=== PATIENT | female | born 1940 | race Caucasian/White ===

== ENCOUNTER 2019-02-16 21:37 | Inpatient (IN) | payer MEDICARE, OTHER ==
[~2019-02-16] VITALS: Ht 154.9 cm; Wt 76.0 kg
[~2019-02-16 21:37] MED LIST: ALBUTEROL 0.5% (NEB) 2.5 MG/0.5 ML AMP INH STA; ALEN70TA5 PO; AMIO100T4 PO; AMLO1TAB14 PO; APIX2.5T PO; ASPI325T32 PO; ATOR20TA38 PO; BEN50 PO; CLON1PAT2 TD; DEXL60CA2 PO; DIGO125T PO; DIGO250T72 PO; FUROSEMIDE 40 MG INJ IV STA; GLYB1TAB3 PO; ICNREG SC; INSU100I27 SQ; INSU100V18 SC; IPRATROPIUM (NEB) 0.5 MG/2.5 ML AMP INH STA; ISOS60TA36 PO; LISI-471 PO; LISI10TA2 PO; MEMA21CA PO; METO100T PO; NITR12SP2 SL; OXYB10TA6 PO; POTA8TAB46 PO; RSV10T PO
[2019-02-16 21:38] VITALS: Ht 154.9 cm; Wt 76.0 kg
[2019-02-16] MEDS ORDERED: NITROGLYCERIN 50 MG/D5W (PMX) 250 ML IV STA (21:41)
[2019-02-16] MEDS ORDERED: AMIODARONE 150MG/D5W BOLUS IV* STA (21:43)
[2019-02-16] MEDS ORDERED: AMIODARONE 900 MG in DEXTROSE 5% 482 ML IV SCH (22:00)
[2019-02-16] MEDS ORDERED: AZITHROMYCIN 500MG/NS (PMX) 250 ML IV STA (22:09)
[2019-02-16] MEDS ORDERED: CEFTRIAXONE 1 GM/50 ML (PMX) 50 ML IVPB STA (22:09)
[2019-02-16] MEDS ORDERED: ACETAMINOPHEN 325 MG TAB PO PRN (22:30)
[2019-02-16] MEDS ORDERED: ONDANSETRON 4 MG INJ IV PRN (22:30)
[2019-02-16] MEDS ORDERED: INSULIN REGULAR, HUMAN 100 UNIT/1 ML 3ML VIAL IV ONE (22:30)
[2019-02-16] MEDS ORDERED: SOD CHLORIDE 0.45% 1,000 ML IV SCH (23:50)
[2019-02-17] VITALS (42 sets, daily range): BP systolic 92–155; BP diastolic 52–94; PULSE 70–85; RESP 18–34
[2019-02-17] MEDS ORDERED: NITROGLYCERIN AEROSOL (4.9 GM) SL SCH
[2019-02-17] MEDS ORDERED: PIPER-TAZO 3.375 GM IV (PMX) 100 ML IVPB SCH
[2019-02-17] MEDS ORDERED: VANCOMYCIN IV PER PHARMACY XX SCH (00:30)
[2019-02-17] MEDS ORDERED: PIPER-TAZO 3.375 GM IV (PMX) 100 ML IVPB ONE (01:00)
[2019-02-17] MEDS ORDERED: NITROGLYCERIN (SL) 0.4 MG TAB SL PRN (01:00)
[2019-02-17] MEDS ORDERED: VANCOMYCIN 1.5 GM/NS 250 ML 250 ML IVPB ONE (05:00)
[2019-02-17] MEDS: PIPER-TAZO 2.25 GM/NS 50 ML IVPB SCH ×3 (07:47→21:21)
[2019-02-17] MEDS: ALBUTEROL/IPRATROPIUM (NEB) 3 ML AMP HHN SCH ×3 (08:12→20:11)
[2019-02-17] MEDS: POTASSIUM CHLORIDE 100 ML IVPB SCH ×2 (08:20→10:04)
[2019-02-17] MEDS: FUROSEMIDE 40 MG INJ IV SCH ×2 (08:21→17:40)
[2019-02-17] MEDS ORDERED: MAGNESIUM SULFATE 4 GM/100 ML 100 ML IVPB ONE (08:30)
[2019-02-17] MEDS: DIPHENHYDRAMINE 50 MG CAP PO SCH ×5 (09:00→21:26)
[2019-02-17] MEDS ORDERED: POTASSIUM CHLORIDE (SR) 8 MEQ CAP PO SCH (09:00)
[2019-02-17] MEDS ORDERED: MAGNESIUM SULFATE 2 GM/50 ML 50 ML IVPB SCH (09:00)
[2019-02-17] MEDS ORDERED: DIGOXIN 0.25 MG TAB PO SCH ×2 (09:00)
[2019-02-17] MEDS ORDERED: ASPIRIN (EC) 325 MG TAB PO SCH (09:00)
[2019-02-17] MEDS ORDERED: VANCOMYCIN 1 GM (PMX) 250 ML IVPB SCH (09:00)
[2019-02-17] MEDS ORDERED: LISINOPRIL 20 MG TAB PO SCH (09:00)
[2019-02-17] MEDS ORDERED: LISINOPRIL 10 MG TAB PO SCH (09:00)
[2019-02-17] MEDS ORDERED: AMIODARONE 900 MG in DEXTROSE 5% 482 ML IV SCH (09:00)
[2019-02-17] MEDS: METOPROLOL 100 MG TAB PO SCH (10:04)
[2019-02-17] MEDS: ASPIRIN (EC) 325 MG TAB PO SCH (10:04)
[2019-02-17] MEDS: SOD FERRIC GLUC COMPLX 125 MG in SOD CHLORIDE 0.9% 100 ML IVPB SCH (13:45)
[2019-02-17] MEDS: AMIODARONE 200 ML IV SCH ×2 (13:54→19:24)
[2019-02-17] MEDS ORDERED: INSULIN LISPRO 100 UNIT/ML VIAL SC SCH (21:00)
[2019-02-17] MEDS ORDERED: INSULIN ASPART [NOVOLOG] 3 ML PEN SC SCH (21:00)
[2019-02-17] MEDS: ATORVASTATIN 20 MG TAB PO SCH (21:26)
[2019-02-18] VITALS (54 sets, daily range): BP systolic 98–150; BP diastolic 44–109; PULSE 64–143; RESP 14–37
[2019-02-18] MEDS: AMIODARONE 200 ML IV SCH ×5 (04:51→21:22)
[2019-02-18] MEDS: VANCOMYCIN 1 GM 250 ML IVPB SCH (04:53)
[2019-02-18] MEDS ORDERED: DILTIAZEM 25 MG INJ IV ONE ×4 (06:00)
[2019-02-18] MEDS: PIPER-TAZO 2.25 GM/NS 50 ML IVPB SCH ×3 (06:02→22:42)
[2019-02-18] MEDS: FUROSEMIDE 40 MG INJ IV SCH ×3 (07:00→17:34)
[2019-02-18] MEDS ORDERED: GLUCOSE GEL 15 GRAM TUBE BUCCAL PRN (08:30)
[2019-02-18] MEDS ORDERED: GLUCAGON 1 MG INJ IM PRN (08:30)
[2019-02-18] MEDS ORDERED: DEXTROSE 50% 50 ML SYRINGE IV PRN ×2 (08:30)
[2019-02-18] MEDS ORDERED: GLUCOSE GEL 15 GRAM TUBE PO PRN ×2 (08:30)
[2019-02-18] MEDS ORDERED: POTASSIUM CHLORIDE (SR) 20 MEQ TAB PO SCH (09:00)
[2019-02-18] MEDS ORDERED: HEPARIN (10 UNITS/ML) 5ML SYG IV ONE (09:00)
[2019-02-18] MEDS: ASPIRIN (EC) 325 MG TAB PO SCH (09:06)
[2019-02-18] MEDS: DIPHENHYDRAMINE 50 MG CAP PO SCH ×4 (09:06→20:59)
[2019-02-18] MEDS: METOPROLOL 100 MG TAB PO SCH (09:07)
[2019-02-18] MEDS: ALBUTEROL/IPRATROPIUM (NEB) 3 ML AMP HHN SCH ×3 (09:34→21:40)
[2019-02-18] MEDS ORDERED: INSULIN ASPART [NOVOLOG] 3 ML PEN SC SCH (11:30)
[2019-02-18] MEDS: POTASSIUM CHLORIDE 50 ML IVPB SCH ×2 (11:52→13:13)
[2019-02-18] MEDS: SOD FERRIC GLUC COMPLX 125 MG in SOD CHLORIDE 0.9% 100 ML IVPB SCH (12:22)
[2019-02-18] MEDS: INSULIN ASPART [NOVOLOG] 3 ML PEN SC SCH ×3 (13:11→21:16)
[2019-02-18] MEDS ORDERED: ACETAMINOPHEN 1000MG/100ML IV 100 ML IVPB ONE (20:30)
[2019-02-18] MEDS ORDERED: METOPROLOL 5 MG INJ IV ONE (20:30)
[2019-02-18] MEDS: ATORVASTATIN 20 MG TAB PO SCH (20:59)
[2019-02-18] MEDS ORDERED: POTASSIUM CHLORIDE 100 ML IVPB ONE (21:00)
[2019-02-18] MEDS ORDERED: DIGOXIN 0.25 MG TAB PO ONE (21:00)
[2019-02-18] MEDS: INSULIN GLARGINE [LANTus] (100 UNITS/ML) SYG SC SCH (21:16)
[2019-02-18] MEDS ORDERED: DIGOXIN 500 MCG INJ IV ONE ×2 (22:00)
[2019-02-19] VITALS (56 sets, daily range): BP systolic 94–153; BP diastolic 49–110; PULSE 63–142; RESP 17–35
[2019-02-19] MEDS: INSULIN ASPART [NOVOLOG] 3 ML PEN SC SCH ×6 (00:47→20:42)
[2019-02-19] MEDS: AMIODARONE 200 ML IV SCH ×3 (03:20→13:07)
[2019-02-19] MEDS ORDERED: DIGOXIN 500 MCG INJ IV ONE ×3 (03:30→10:00)
[2019-02-19] MEDS: VANCOMYCIN 1 GM 250 ML IVPB SCH (04:29)
[2019-02-19] MEDS: FUROSEMIDE 40 MG INJ IV SCH ×2 (05:31→17:36)
[2019-02-19] MEDS: PIPER-TAZO 2.25 GM/NS 50 ML IVPB SCH ×3 (06:44→21:37)
[2019-02-19] MEDS: POTASSIUM CHLORIDE 100 ML IVPB SCH ×3 (07:55→11:49)
[2019-02-19] MEDS: ALBUTEROL/IPRATROPIUM (NEB) 3 ML AMP HHN SCH ×3 (08:06→21:30)
[2019-02-19] MEDS: DIPHENHYDRAMINE 50 MG CAP PO SCH ×4 (08:33→20:32)
[2019-02-19] MEDS: ASPIRIN (EC) 325 MG TAB PO SCH (08:33)
[2019-02-19] MEDS: METOPROLOL 100 MG TAB PO SCH (08:37)
[2019-02-19] MEDS ORDERED: POTASSIUM CHLORIDE 100 ML IVPB SCH (09:30)
[2019-02-19] MEDS: SOD FERRIC GLUC COMPLX 125 MG in SOD CHLORIDE 0.9% 100 ML IVPB SCH (13:05)
[2019-02-19] MEDS: ACETAMINOPHEN 650 MG SUPP PR PRN (15:59)
[2019-02-19] MEDS: VANCOMYCIN 1 GM (PMX) 250 ML IVPB SCH (16:20)
[2019-02-19] MEDS: AMIODARONE 900 MG in DEXTROSE 5% 482 ML IV SCH (17:46)
[2019-02-19] MEDS ORDERED: POTASSIUM CHLORIDE 100 ML IVPB ONE (18:30)
[2019-02-19] MEDS: METOPROLOL 50 MG TAB PO SCH ×2 (18:43→23:42)
[2019-02-19] MEDS ORDERED: POTASSIUM PHOSPHATE 10 MEQ in SOD CHLORIDE 0.9% 250 ML IVPB ONE (20:00)
[2019-02-19] MEDS: ATORVASTATIN 20 MG TAB PO SCH (20:32)
[2019-02-19] MEDS: INSULIN GLARGINE [LANTus] (100 UNITS/ML) SYG SC SCH (20:42)
[2019-02-19] MEDS ORDERED: SOD CHLORIDE 0.9% IV PRN (23:45)
[2019-02-19] MEDS ORDERED: ONDANSETRON IV PRN (23:45)
[2019-02-20] VITALS (31 sets, daily range): BP systolic 97–145; BP diastolic 56–126; PULSE 92–120; RESP 19–36
[2019-02-20] MEDS: ACETAMINOPHEN 650 MG SUPP PR PRN
[2019-02-20] MEDS ORDERED: ONDANSETRON 4 MG INJ IV PRN
[2019-02-20] MEDS ORDERED: GUAIFENESIN/CODEINE 5ML CUP PO PRN
[2019-02-20] MEDS: INSULIN ASPART [NOVOLOG] 3 ML PEN SC SCH ×6 (00:51→20:03)
[2019-02-20] MEDS: FUROSEMIDE 40 MG INJ IV SCH ×2 (05:27→17:47)
[2019-02-20] MEDS: METOPROLOL 50 MG TAB PO SCH ×4 (05:28→23:59)
[2019-02-20] MEDS: PIPER-TAZO 2.25 GM/NS 50 ML IVPB SCH ×4 (05:28→23:59)
[2019-02-20] MEDS: AMIODARONE 900 MG in DEXTROSE 5% 482 ML IV SCH (08:42)
[2019-02-20] MEDS: DIPHENHYDRAMINE 50 MG CAP PO SCH (08:51)
[2019-02-20] MEDS ORDERED: DIPHENHYDRAMINE 50 MG CAP PO PRN (09:00)
[2019-02-20] MEDS: ASPIRIN (EC) 325 MG TAB PO SCH (09:13)
[2019-02-20] MEDS ORDERED: POTASSIUM CHLORIDE 50 ML IVPB ONE (09:30)
[2019-02-20] MEDS: ALBUTEROL/IPRATROPIUM (NEB) 3 ML AMP HHN SCH ×3 (09:44→20:16)
[2019-02-20] MEDS: DIGOXIN 0.125 MG TAB PO SCH (12:40)
[2019-02-20] MEDS: SOD FERRIC GLUC COMPLX 125 MG in SOD CHLORIDE 0.9% 100 ML IVPB SCH (12:40)
[2019-02-20] MEDS: FAMOTIDINE 20 MG TAB PO SCH (12:40)
[2019-02-20] MEDS: VANCOMYCIN 1 GM (PMX) 250 ML IVPB SCH (16:08)
[2019-02-20] MEDS: ACETAMINOPHEN 325 MG TAB PO PRN (17:47)
[2019-02-20] MEDS: ATORVASTATIN 20 MG TAB PO SCH (20:00)
[2019-02-20] MEDS: INSULIN GLARGINE [LANTus] (100 UNITS/ML) SYG SC SCH (20:01)
[2019-02-20] MEDS: APIXABAN 5 MG TABLET PO SCH (20:04)
[2019-02-21] VITALS (24 sets, daily range): BP systolic 75–152; BP diastolic 52–115; PULSE 86–117; RESP 19–34
[2019-02-21] MEDS: ACCU-CHEK XX SCH (01:40)
[2019-02-21] MEDS: ACETAMINOPHEN 325 MG TAB PO PRN ×2 (01:40→11:26)
[2019-02-21] MEDS: VANCOMYCIN 1 GM (PMX) 250 ML IVPB SCH ×2 (03:11→17:39)
[2019-02-21] MEDS: FUROSEMIDE 40 MG INJ IV SCH ×2 (05:32→17:39)
[2019-02-21] MEDS: PIPER-TAZO 2.25 GM/NS 50 ML IVPB SCH ×3 (05:32→17:39)
[2019-02-21] MEDS: METOPROLOL 50 MG TAB PO SCH ×3 (06:05→17:40)
[2019-02-21] MEDS ORDERED: ALTEPLASE (CATHFLO) 2 MG INJ CATHETER ONE (07:00)
[2019-02-21] MEDS ORDERED: POTASSIUM CHLORIDE (SR) 20 MEQ TAB PO ONE (07:00)
[2019-02-21] MEDS: INSULIN ASPART [NOVOLOG] 3 ML PEN SC SCH ×4 (07:35→20:36)
[2019-02-21] MEDS: ALBUTEROL/IPRATROPIUM (NEB) 3 ML AMP HHN SCH ×3 (08:00→21:26)
[2019-02-21] MEDS: METHYLPREDNISOLONE 40 MG INJ IV SCH ×3 (08:30→17:39)
[2019-02-21] MEDS: ASPIRIN (EC) 325 MG TAB PO SCH (09:00)
[2019-02-21] MEDS: APIXABAN 5 MG TABLET PO SCH ×2 (10:22→20:07)
[2019-02-21] MEDS: FAMOTIDINE 20 MG TAB PO SCH (10:22)
[2019-02-21] MEDS ORDERED: ONDANSETRON 4 MG INJ IV PRN (10:30)
[2019-02-21] MEDS: DIGOXIN 0.125 MG TAB PO SCH (12:18)
[2019-02-21] MEDS: SOD FERRIC GLUC COMPLX 125 MG in SOD CHLORIDE 0.9% 100 ML IVPB SCH (13:59)
[2019-02-21] MEDS ORDERED: POTASSIUM CHLORIDE (SR) 10 MEQ TAB PO ONE (16:00)
[2019-02-21] MEDS: ATORVASTATIN 20 MG TAB PO SCH (20:07)
[2019-02-21] MEDS: INSULIN GLARGINE [LANTus] (100 UNITS/ML) SYG SC SCH (20:09)
[2019-02-21] MEDS ORDERED: INSULIN ASPART [NOVOLOG] 3 ML PEN SC ONE (20:30)
[2019-02-21] MEDS ORDERED: ACCU-CHEK XX ONE (20:30)
[2019-02-22] VITALS (24 sets, daily range): BP systolic 87–150; BP diastolic 43–103; PULSE 75–106; RESP 15–29
[2019-02-22] MEDS: PIPER-TAZO 2.25 GM/NS 50 ML IVPB SCH ×4 (00:25→17:46)
[2019-02-22] MEDS: METOPROLOL 50 MG TAB PO SCH ×4 (00:25→17:48)
[2019-02-22] MEDS: METHYLPREDNISOLONE 40 MG INJ IV SCH ×4 (00:25→17:47)
[2019-02-22] MEDS: ACETAMINOPHEN 325 MG TAB PO PRN (01:56)
[2019-02-22] MEDS: ACCU-CHEK XX SCH ×10 (01:58→23:00)
[2019-02-22] MEDS: VANCOMYCIN 1 GM (PMX) 250 ML IVPB SCH ×2 (03:01→17:47)
[2019-02-22] MEDS: FUROSEMIDE 40 MG INJ IV SCH ×2 (05:19→17:47)
[2019-02-22] MEDS ORDERED: INSULIN GLARGINE [LANTus] (100 UNITS/ML) SYG SC SCH ×2 (08:00→20:00)
[2019-02-22] MEDS: ALBUTEROL/IPRATROPIUM (NEB) 3 ML AMP HHN SCH ×3 (08:23→20:25)
[2019-02-22] MEDS: INSULIN ASPART [NOVOLOG] 3 ML PEN SC SCH ×2 (08:53→12:10)
[2019-02-22] MEDS ORDERED: POTASSIUM CHLORIDE (SR) 10 MEQ TAB PO ONE (09:30)
[2019-02-22] MEDS: APIXABAN 5 MG TABLET PO SCH ×2 (09:45→21:38)
[2019-02-22] MEDS: FAMOTIDINE 20 MG TAB PO SCH (09:45)
[2019-02-22] MEDS ORDERED: INSULIN ASPART [NOVOLOG] 3 ML PEN SC ONE (12:30)
[2019-02-22] MEDS ORDERED: ACCU-CHEK XX ONE (12:30)
[2019-02-22] MEDS: DIGOXIN 0.125 MG TAB PO SCH (12:31)
[2019-02-22] MEDS ORDERED: DEXTROSE 50% 50 ML SYRINGE IV PRN ×2 (15:00)
[2019-02-22] MEDS ORDERED: INSULIN HUMAN REGULAR 100 UNIT in SOD CHLORIDE 0.9% 99 ML IV SCH (15:00)
[2019-02-22] MEDS: INSULIN HUMAN REGULAR 100 UNIT in SOD CHLORIDE 0.9% 99 ML IV SCH (16:47)
[2019-02-22] MEDS: ATORVASTATIN 20 MG TAB PO SCH (21:38)
[2019-02-23] VITALS (22 sets, daily range): BP systolic 115–155; BP diastolic 42–130; PULSE 73–97; RESP 15–32
[2019-02-23] MEDS: ACCU-CHEK XX SCH ×24 (01:00→23:32)
[2019-02-23] MEDS: PIPER-TAZO 2.25 GM/NS 50 ML IVPB SCH ×4 (01:08→17:33)
[2019-02-23] MEDS: METHYLPREDNISOLONE 40 MG INJ IV SCH ×4 (01:08→21:01)
[2019-02-23] MEDS: METOPROLOL 50 MG TAB PO SCH ×5 (01:09→22:57)
[2019-02-23] MEDS: INSULIN HUMAN REGULAR 100 UNIT in SOD CHLORIDE 0.9% 99 ML IV SCH (03:30)
[2019-02-23] MEDS: FUROSEMIDE 40 MG INJ IV SCH ×2 (05:41→17:34)
[2019-02-23] MEDS ORDERED: INSULIN GLARGINE [LANTus] (100 UNITS/ML) SYG SC SCH (07:05)
[2019-02-23] MEDS: ALBUTEROL/IPRATROPIUM (NEB) 3 ML AMP HHN SCH ×3 (08:23→20:15)
[2019-02-23] MEDS: APIXABAN 5 MG TABLET PO SCH ×2 (09:18→21:02)
[2019-02-23] MEDS: FAMOTIDINE 20 MG TAB PO SCH (09:18)
[2019-02-23] MEDS: POTASSIUM CHLORIDE (SR) 20 MEQ TAB PO SCH ×2 (11:29→21:02)
[2019-02-23] MEDS: DIGOXIN 0.125 MG TAB PO SCH (13:52)
[2019-02-23] MEDS: ATORVASTATIN 20 MG TAB PO SCH (21:02)
[2019-02-24] VITALS (24 sets, daily range): BP systolic 93–165; BP diastolic 28–87; PULSE 66–83; RESP 14–25
[2019-02-24] MEDS: ACCU-CHEK XX SCH ×25 (00:27→23:43)
[2019-02-24] MEDS: FUROSEMIDE 40 MG INJ IV SCH (06:07)
[2019-02-24] MEDS: METOPROLOL 50 MG TAB PO SCH (06:07)
[2019-02-24] MEDS: INSULIN HUMAN REGULAR 100 UNIT in SOD CHLORIDE 0.9% 99 ML IV SCH ×2 (08:06→23:34)
[2019-02-24] MEDS ORDERED: POTASSIUM CHLORIDE 20 MEQ POWDER FOR ORAL SOLN PO ONE (09:00)
[2019-02-24] MEDS: ALBUTEROL/IPRATROPIUM (NEB) 3 ML AMP HHN SCH ×3 (09:00→20:48)
[2019-02-24] MEDS: POTASSIUM CHLORIDE (SR) 20 MEQ TAB PO SCH ×2 (09:29→20:06)
[2019-02-24] MEDS: METHYLPREDNISOLONE 40 MG INJ IV SCH (09:29)
[2019-02-24] MEDS: APIXABAN 5 MG TABLET PO SCH ×2 (09:30→20:06)
[2019-02-24] MEDS: METOPROLOL 100 MG TAB PO SCH ×2 (09:30→20:06)
[2019-02-24] MEDS: FAMOTIDINE 20 MG TAB PO SCH (09:30)
[2019-02-24] MEDS: DIGOXIN 0.125 MG TAB PO SCH (13:25)
[2019-02-24] MEDS: FUROSEMIDE 20 MG INJ IV SCH (18:06)
[2019-02-24] MEDS: ATORVASTATIN 20 MG TAB PO SCH (20:06)
[2019-02-25] VITALS (22 sets, daily range): BP systolic 115–148; BP diastolic 33–118; PULSE 62–79; RESP 15–30
[2019-02-25] MEDS: ACCU-CHEK XX SCH ×23 (01:12→23:00)
[2019-02-25] MEDS: FUROSEMIDE 20 MG INJ IV SCH (06:11)
[2019-02-25] MEDS: FAMOTIDINE 20 MG TAB PO SCH (08:10)
[2019-02-25] MEDS: POTASSIUM CHLORIDE (SR) 20 MEQ TAB PO SCH ×2 (08:10→20:22)
[2019-02-25] MEDS: METOPROLOL 100 MG TAB PO SCH ×2 (08:10→20:22)
[2019-02-25] MEDS: APIXABAN 5 MG TABLET PO SCH ×2 (08:11→20:21)
[2019-02-25] MEDS: ALBUTEROL/IPRATROPIUM (NEB) 3 ML AMP HHN SCH (08:44)
[2019-02-25] MEDS ORDERED: METHYLPREDNISOLONE 40 MG INJ IV SCH (09:00)
[2019-02-25] MEDS ORDERED: ALBUTEROL/IPRATROPIUM (NEB) 3 ML AMP HHN PRN (12:00)
[2019-02-25] MEDS: DIGOXIN 0.125 MG TAB PO SCH (13:21)
[2019-02-25] MEDS: INSULIN HUMAN REGULAR 100 UNIT in SOD CHLORIDE 0.9% 99 ML IV SCH (17:48)
[2019-02-25] MEDS: ATORVASTATIN 20 MG TAB PO SCH (20:21)
[2019-02-26] VITALS (21 sets, daily range): BP systolic 97–171; BP diastolic 49–112; PULSE 65–86; RESP 15–31
[2019-02-26] MEDS: ACCU-CHEK XX SCH ×11 (00:40→19:18)
[2019-02-26] MEDS: POTASSIUM CHLORIDE (SR) 20 MEQ TAB PO SCH ×2 (08:12→21:30)
[2019-02-26] MEDS: FAMOTIDINE 20 MG TAB PO SCH (08:12)
[2019-02-26] MEDS: METOPROLOL 100 MG TAB PO SCH ×2 (08:12→21:31)
[2019-02-26] MEDS: APIXABAN 5 MG TABLET PO SCH ×2 (08:12→21:30)
[2019-02-26] MEDS ORDERED: FUROSEMIDE 40 MG TAB PO SCH (09:00)
[2019-02-26] MEDS: INSULIN ASPART [NOVOLOG] 3 ML PEN SC SCH ×3 (12:02→21:00)
[2019-02-26] MEDS: DIGOXIN 0.125 MG TAB PO SCH (12:03)
[2019-02-26] MEDS: INSULIN GLARGINE [LANTus] (100 UNITS/ML) SYG SC SCH (19:17)
[2019-02-26] MEDS: ATORVASTATIN 20 MG TAB PO SCH (21:30)
[2019-02-26] MEDS ORDERED: INSULIN GLARGINE [LANTus] (100 UNITS/ML) SYG SC SCH (23:00)
[2019-02-27 04:00] VITALS: BP 136/65; PULSE 73; RESP 20
[2019-02-27] MEDS: ACCU-CHEK XX SCH ×6 (04:00→20:00)
[2019-02-27 07:20] VITALS: BP 147/64; PULSE 78; RESP 20
[2019-02-27] MEDS: INSULIN ASPART [NOVOLOG] 3 ML PEN SC SCH ×4 (08:00→21:42)
[2019-02-27] MEDS: POTASSIUM CHLORIDE (SR) 20 MEQ TAB PO SCH ×2 (08:04→21:21)
[2019-02-27] MEDS: APIXABAN 5 MG TABLET PO SCH ×2 (08:04→21:21)
[2019-02-27] MEDS: METOPROLOL 100 MG TAB PO SCH ×2 (08:04→21:22)
[2019-02-27] MEDS: FAMOTIDINE 20 MG TAB PO SCH (08:05)
[2019-02-27] MEDS: FUROSEMIDE 40 MG TAB PO SCH (08:17)
[2019-02-27] MEDS ORDERED: FUROSEMIDE 40 MG INJ IV SCH (09:00)
[2019-02-27 12:03] VITALS: BP 152/66; PULSE 79; RESP 20
[2019-02-27] MEDS: DIGOXIN 0.125 MG TAB PO SCH (13:41)
[2019-02-27 15:28] VITALS: BP 138/63; PULSE 70; RESP 20
[2019-02-27] MEDS: ALBUMIN HUMAN 25% 100 ML IV SCH (17:34)
[2019-02-27 20:00] VITALS: BP 121/69; PULSE 91; RESP 18
[2019-02-27] MEDS: ATORVASTATIN 20 MG TAB PO SCH (21:21)
[2019-02-27] MEDS: INSULIN GLARGINE [LANTus] (100 UNITS/ML) SYG SC SCH (21:42)
[2019-02-28] VITALS: BP 149/76; PULSE 80; RESP 20
[2019-02-28] MEDS: ALBUMIN HUMAN 25% 100 ML IV SCH ×2 (01:30→09:26)
[2019-02-28] MEDS: ACCU-CHEK XX SCH ×3 (02:00→08:00)
[2019-02-28 03:36] VITALS: BP 147/69; PULSE 72; RESP 20
[2019-02-28 07:23] VITALS: BP 142/66; PULSE 71; RESP 18
[2019-02-28] MEDS: INSULIN ASPART [NOVOLOG] 3 ML PEN SC SCH ×2 (07:40→12:11)
[2019-02-28] MEDS: FAMOTIDINE 20 MG TAB PO SCH (09:23)
[2019-02-28] MEDS: POTASSIUM CHLORIDE (SR) 20 MEQ TAB PO SCH (09:23)
[2019-02-28] MEDS: APIXABAN 5 MG TABLET PO SCH (09:24)
[2019-02-28] MEDS: METOPROLOL 100 MG TAB PO SCH (09:25)
[2019-02-28] MEDS: FUROSEMIDE 40 MG TAB PO SCH (09:25)
== END 2019-02-28 12:17 | disposition home or self-care (01) | DRG 871 ==
LOC: E/R 21:37 → ICU 22:09 → 6WM 02-26 20:22
PROVIDERS: ADMIT Family Medicine; ATTEND Family Medicine
PROC: 02H633Z Insertion of Infusion Device into Right Atrium, Percutaneous Approach (ICD-10-PCS; principal; 2019-02-18)
DX: A41.9 Sepsis, unspecified organism (principal); G93.41 Metabolic encephalopathy; J18.9 Pneumonia, unspecified organism; J96.01 Acute respiratory failure with hypoxia; I50.33 Acute on chronic diastolic (congestive) heart failure; E87.2 Acidosis; E87.1 Hypo-osmolality and hyponatremia; I48.92 Unspecified atrial flutter; F05 Delirium due to known physiological condition; D50.9 Iron deficiency anemia, unspecified; E78.5 Hyperlipidemia, unspecified; E87.6 Hypokalemia; E11.65 Type 2 diabetes mellitus with hyperglycemia; F03.90 Unspecified dementia, unspecified severity, without behavioral disturbance, psychotic disturbance, mood disturbance, and anxiety; I11.0 Hypertensive heart disease with heart failure; I48.0 Paroxysmal atrial fibrillation; I65.21 Occlusion and stenosis of right carotid artery; I25.10 Atherosclerotic heart disease of native coronary artery without angina pectoris; I83.93 Asymptomatic varicose veins of bilateral lower extremities; K21.9 Gastro-esophageal reflux disease without esophagitis; K29.70 Gastritis, unspecified, without bleeding; M81.0 Age-related osteoporosis without current pathological fracture; R32 Unspecified urinary incontinence; Z95.5 Presence of coronary angioplasty implant and graft; Z79.4 Long term (current) use of insulin; Z79.82 Long term (current) use of aspirin; Z79.01 Long term (current) use of anticoagulants; Z79.83 Long term (current) use of bisphosphonates
CPT/HCPCS: 36415; 36573; 36600; 71045; 71250; 80048; 80053; 80162; 80202; 81001; 82728; 82803; 82962; 83540; 83605; 83735; 83880; 84100; 84132; 84145; 84484; 85025; 85610; 85730; 87081; 87086; 93005; 93306; 94640; 94660; 94664; 96374; 96375; 97116; 97163; 97530; J0131; J0282; J0456; J0696; J1815; J1940; J2405; J2543; J2916; J2920; J2997; J3370; J3480; J7050; J7060; P9047